=== PATIENT | female | born 1985 | race Caucasian/White ===

== ENCOUNTER 2016-10-14 22:45 | Emergency (ER) | payer SELFPAY ==
[~2016-10-14] VITALS: Ht 167.6 cm; Wt 68.2 kg
[2016-10-14 22:50] VITALS: Ht 167.6 cm; Wt 68.2 kg
--- NOTE | 2016-10-14 22:54 | ERA ---
ER Documentation Chief Complaint Date/Time DATE: 10/14/16 TIME: 22:53 Chief Complaint PT BIBA FROM HOME FOR ANXIETY AND SHAKING PER FAMILY, NO HX OF SEIZURE HPI The patient is a 31-year-old female, presenting to the ER because of acute anxiety. She drank a Patricia bull 7 PM. She is having a lot of stress, going through a divorce. She feels anxious, denies homicidal, suicidal ideation, auditory of visual hallucination. She denies facial pain, neck pain, chest pain , abdominal pain, vomiting, dysuria, diarrhea. She smokes socially, denies drinking or using illegal drug ROS All systems reviewed and are negative except as per history of present illness. Medications Home Meds Active Scripts Sulfamethoxazole-Trimethoprim* (Bactrim* DS) 800-160 Mg Tab, 1 TAB PO BID for 7 Days, TAB Prov:CHANCE ROSENBAUM MD 10/15/16 Physical Exam Vitals Vital Signs Date Time Temp Pulse Resp B/P Pulse Ox O2 Delivery O2 Flow Rate FiO2 10/15/16 01:17 64 20 116/71 100 Room Air 10/15/16 00:42 98.3 68 16 122/82 100 Room Air 10/14/16 23:03 83 19 131/91 100 Room Air 10/14/16 22:50 98.4 125 17 142/85 0 Physical Exam Const: No acute distress. Head: Atraumatic. Eyes: Normal Conjunctiva. ENT: Normal External Ears, Nose and Mouth. Neck: Full range of motion. No meningismus. Resp: Clear to auscultation bilaterally. Cardio: Regular rate and rhythm, no murmurs. Abd: Soft, non distended, normal bowel sounds, non tender. Skin: No petechiae or rashes. Back: No midline or flank tenderness. Ext: No cyanosis, or edema. Neur: Anxious Psych: Normal Mood and Affect. Result Diagram: 10/15/16 0030 10/15/16 0030 Results 24 hrs Laboratory Tests Test 10/14/16 23:45 10/15/16 00:02 10/15/16 00:30 Urine Amphetamines Screen Negative Urine Barbiturates Negative Urine Benzodiazepines Screen Negative Urine Cannabinoids Negative Urine Cocaine Screen Negative Urine Opiates Screen Negative Bedside Urine Blood Negative Bedside Urine Glucose (UA) Negative Bedside Urine Ketones (LAB) Negative Bedside Urine Leukocyte Esterase (L 2+ Bedside Urine Nitrite (LAB) Positive Bedside Urine Protein (LAB) Negative Bedside Urine pH (LAB) 5.5 Acetaminophen Level < 10.0ug/ml Alanine Aminotransferase (ALT/SGPT) 39IU/L Albumin 4.1g/dl Albumin/Globulin Ratio 1.24 Alkaline Phosphatase 94IU/L Anion Gap 15 Aspartate Amino Transf (AST/SGOT) 29IU/L Basophils # 0.110^3/ul Basophils % 0.6% Blood Urea Nitrogen 9mg/dl Calcium Level 8.8mg/dl Carbon Dioxide Level 23mmol/L Chloride Level 107mmol/L Creatinine 0.52mg/dl Direct Bilirubin 0.00mg/dl Eosinophils # 0.410^3/ul Eosinophils % 3.9% Ethyl Alcohol Level < 10.0mg/dl Globulin 3.30g/dl Glucose Level 92mg/dl Hematocrit 37.2% Hemoglobin 12.4g/dl Indirect Bilirubin 0.0mg/dl Lymphocytes # 1.710^3/ul Lymphocytes % 18.7% Mean Corpuscular Hemoglobin 28.9pg Mean Corpuscular Hemoglobin Concent 33.3g/dl Mean Corpuscular Volume 86.7fl Mean Platelet Volume 10.9fl Monocytes # 0.710^3/ul Monocytes % 7.7% Neutrophils # 6.210^3/ul Neutrophils % 68.9% Nucleated Red Blood Cells # 0.010^3/ul Nucleated Red Blood Cells % 0.0/100WBC Platelet Count 44373^3/UL Potassium Level 3.3mmol/L Red Blood Count 4.2910^6/ul Red Cell Distribution Width 13.2% Salicylates Level < 1.0mg/dl Sodium Level 142mmol/L Total Bilirubin 0.0mg/dl Total Protein 7.4g/dl White Blood Count 9.010^3/ul Current Medications Medications (Trade) Dose Ordered Sig/Judith Route PRN Reason Start Time Stop Time Status Last Admin Dose Admin Acetaminophen (Tylenol Tab) 650 mg ONCE ONCE PO 10/15/16 00:00 10/15/16 00:01 DC 10/14/16 23:50 Potassium Chloride (Klor-Con 20) 20 meq ONCE STAT PO 10/15/16 01:30 10/15/16 01:31 UNV Procedures/MDM MEDICAL MAKING DECISION: The patient is a 31-year-old female, presenting with acute anxiety, acute hypokalemia, acute cystitis. She was treated with Tylenol 650 mg p.o. for headache and potassium chloride 20 mEq p.o. The differential diagnoses considered include but are not limited to acute anxiety attack, acute panic attack, acute depression, acute stress Departure Diagnosis: Primary Impression: Anxiety Additional Impressions: UTI (urinary tract infection) Hypokalemia Condition: Good Comments She was discharged with Bactrim DS I discussed the findings with the patient. I advised the patient to follow-up with the primary physician in about 1-2 days, sooner if needed and return if any concern. The patient's blood pressure was elevated (>120/80) but appears stable without evidence of hypertension emergency or urgency. The patient was counseled about the risks of hypertension and urged to pursue outpatient monitoring and therapy within a week with their primary care physician. CHANCE ROSENBAUM MD Oct 14, 2016 22:53
[2016-10-15] MEDS ORDERED: ACETAMINOPHEN 325 MG TAB PO ONE
[2016-10-15 00:04] LABS: URINE BLOOD (Dip) POC Negative (NEGATIVE)
[2016-10-15 00:50] LABS: ADD SCAN DIFF NO
[2016-10-15 00:54] LABS: BASOPHIL # 0.1 10^3/ul (0.0-0.1); BASOPHILS % 0.6 % (0.0-2.0); EOSINOPHILS # 0.4 10^3/ul (0.0-0.5); EOSINOPHILS % 3.9 % (0.0-7.0); HEMATOCRIT 37.2 % (37.0-47.0); HEMOGLOBIN 12.4 g/dl (12.0-16.0); LYMPHOCYTES # 1.7 10^3/ul (0.8-2.9); LYMPHOCYTES % 18.7 % (15.0-51.0); MEAN CORPUSCULAR HEMOGLOBIN 28.9 pg (29.0-33.0); MEAN CORPUSCULAR HGB CONC 33.3 g/dl (32.0-37.0); MEAN CORPUSCULAR VOLUME 86.7 fl (82.0-101.0); MEAN PLATELET VOLUME 10.9 fl (7.4-10.4); MONOCYTE # 0.7 10^3/ul (0.3-0.9); MONOCYTES % 7.7 % (0.0-11.0); NEUTROPHIL # 6.2 10^3/ul (1.6-7.5); NEUTROPHILS % 68.9 % (39.0-77.0); PLATELET COUNT 317 10^3/UL (140-415); RED BLOOD COUNT 4.29 10^6/ul (4.20-5.40); RED CELL DISTRIBUTION WIDTH 13.2 % (11.5-14.5)
[2016-10-15 01:03] LABS: ALBUMIN 4.1 g/dl (3.3-4.9); CHLORIDE 107 mmol/L (97-110)
[2016-10-15 01:04] LABS: POTASSIUM 3.3 mmol/L (3.5-5.1); SODIUM 142 mmol/L (135-144)
[2016-10-15 01:06] LABS: ALBUMIN/GLOBULIN RATIO 1.24; ALKALINE PHOSPHATASE 94 IU/L (42-121); ANION GAP 15 (8-16); ASPARTATE AMINO TRANSFERASE 29 IU/L (15-46); BLOOD UREA NITROGEN 9 mg/dl (7-20); CARBON DIOXIDE 23 mmol/L (21-31); CREATININE 0.52 mg/dl (0.44-1.00); TOTAL PROTEIN 7.4 g/dl (6.1-8.1)
[2016-10-15 01:07] LABS: ALANINE AMINOTRANSFERASE 39 IU/L (13-69); CALCIUM 8.8 mg/dl (8.4-10.2); GLUCOSE 92 mg/dl (70-220)
[2016-10-15 01:26] LABS: ACETAMINOPHEN < 10.0 ug/ml (10.0-30.0); ETHANOL < 10.0 mg/dl; SALICYLATE < 1.0 mg/dl (5.0-30.0)
[2016-10-15 01:40] LABS: BARBITURATES Negative (NEGATIVE); BENZODIAZEPINES Negative (NEGATIVE); CANNABINOIDS Negative (NEGATIVE); COCAINE Negative (NEGATIVE); OPIATES Negative (NEGATIVE)
[2016-10-15] MEDS ORDERED: BACTDS PO (01:49)
[2016-10-15] MEDS ORDERED: POTASSIUM CHLORIDE (SR) 20 MEQ TAB PO ONE (01:59)
[2016-10-15 02:40] VITALS: BP 113/77; PULSE 72; RESP 15; TEMP 98.1
== END 2016-10-15 02:40 | disposition home or self-care (01) ==
LOC: E/R 22:45
DX: F41.9 Anxiety disorder, unspecified (principal); F17.210 Nicotine dependence, cigarettes, uncomplicated; R40.2142 Coma scale, eyes open, spontaneous, at arrival to emergency department; R40.2252 Coma scale, best verbal response, oriented, at arrival to emergency department; R40.2362 Coma scale, best motor response, obeys commands, at arrival to emergency department; N39.0 Urinary tract infection, site not specified; E87.6 Hypokalemia
CPT/HCPCS: 36415; 80053; 80306; 80307; 81003; 85025; 99283

== ENCOUNTER 2018-02-03 21:11 | Outpatient (CLI) | END 2018-02-04 01:55 | disposition home or self-care (01) ==

== ENCOUNTER 2018-02-06 20:35 | Outpatient (CLI) | END 2018-02-06 22:37 | disposition home or self-care (01) ==

== ENCOUNTER 2019-02-08 17:21 | Inpatient (IN) | payer MEDICAID ==
[~2019-02-08] VITALS: Ht 162.6 cm; Wt 87.0 kg
[~2019-02-08 17:21] MED LIST: PREN-6 PO
[2019-02-08 17:54] VITALS: BP 107/61; Ht 162.6 cm; Wt 87.0 kg
[2019-02-08] MEDS ORDERED: AL HYDROX/MG HYDROX/SIMETH 30 ML CUP PO PRN (23:00)
[2019-02-08] MEDS ORDERED: MAGNESIUM SULFATE 4 GM/100 ML 100 ML IV ONE (23:00)
[2019-02-08] MEDS ORDERED: ONDANSETRON 4 MG INJ IV PRN (23:00)
[2019-02-08] MEDS ORDERED: ACETAMINOPHEN 325 MG TAB PO PRN (23:00)
[2019-02-08] MEDS: LACTATED RINGER'S 1,000 ML IV SCH (23:26)
--- NOTE | 2019-02-08 23:27 | TRIAGE ---
OB Triage Datetime Report Generated by CPN: 02/08/2019 23:27 Datetime: 02/08/2019 22:22 Vaginal Exam Membrane Status: Intact Datetime: 02/08/2019 19:38 Pain Assessment Pain Scale: 2 Pain Presence: Intermittent Pain Type: Pressure Pain Location: Abdomen Pain Assessment Comments: Pt states feeling pressure when the baby moves. Datetime: 02/08/2019 18:51 Stage of : OB Triage Labor Evaluation Frequency: 0 Monitor Mode: External Pattern: Normal: <= 5 Contractions in 10 Minutes Resting Tone [place]: Relaxed Heart Rate FHR Baseline Rate: 135 Monitor Mode: External US Variability: Moderate 6-25 bpm Accelerations: 15X15 Decelerations: None Category: Category I Datetime: 02/08/2019 17:49 Time of Arrival: 02/08/2019 17:08 EGA: 30.3 Arrived By: Ambulatory Arrived From: Dr. Goodman Chief Complaint: SENT TO R/O PTL , C/O PRESSURE Movement: Present Contractions: Denies/Absent Rupture of Membranes: Denies Vaginal Bleeding: None Vaginal Discharge: Denies Recent Sexual Intercouse: Denies Abdominal Trauma: Not Applicable Patient Complaints: Other Time Provider Notified: 02/08/2019 17:52 Provider Notified: DR. HUNTER Initial Plan: EFM, CALL MD , FFN, CL, US CLARK Datetime: 02/08/2019 17:41 Stage of : OB Triage Labor Evaluation Frequency: 0 Monitor Mode: External Pattern: Normal: <= 5 Contractions in 10 Minutes Resting Tone [place]: Relaxed Heart Rate FHR Baseline Rate: 145 Monitor Mode: External US Variability: Moderate 6-25 bpm Accelerations: 15X15 Decelerations: None Category: Category I Pain Presence: None/Denies Pain Type: N/A
[2019-02-08] MEDS: AMPICILLIN 2 GM/NS (PMX) 100 ML IV SCH (23:28)
[2019-02-09] MEDS: MAGNESIUM SULFATE 20 GM/500 ML 500 ML IV SCH ×3 (00:10→19:31)
--- NOTE | 2019-02-09 00:13 | PN ---
Triage Information Date/Time Feb 08, 2019 at 22:15 Reason for visit: Abd/pelvic pain Weeks of Gestation 30 weeks and 3 days /Para -0-0-3 Diabetes: none Hypertention: none Objective Vital Signs Date Temp Pulse Resp B/P (MAP) Pulse Ox O2 O2 Flow FiO2 Time Delivery Rate 02/08/19 98.0 107/61 17:54 (76) Heart Rate: 130's Contractions: 6-10 Minutes Apart Results/Medications Result Diagram: 02/08/19 2300 Results 24 hrs Laboratory Tests Test 02/08/19 18:00 02/08/19 23:00 Urine Color YELLOW Urine Clarity SLIGHTLY CLOUDY A Urine pH 6.0 Urine Specific [place] 1.025 Urine Ketones NEGATIVE Urine Nitrite NEGATIVE Urine Bilirubin NEGATIVE Urine Urobilinogen NEGATIVE Urine Leukocyte Esterase TRACE A Urine Microscopic RBC 1 Urine Microscopic WBC 14 H Urine Calcium Oxalate Crystals MANY A Urine Bacteria MANY A Urine Mucus FEW A Urine Hemoglobin NEGATIVE Urine Glucose NEGATIVE Urine Total Protein NEGATIVE Fibronectin NEGATIVE White Blood Count 9.4 Red Blood Count 3.84 L Hemoglobin 10.9 L Hematocrit 32.2 L Mean Corpuscular Volume 83.9 Mean Corpuscular Hemoglobin 28.4 L Mean Corpuscular Hemoglobin Concent 33.9 Red Cell Distribution Width 13.2 Platelet Count 261 Mean Platelet Volume 11.2 H Immature Granulocytes % 0.400 Neutrophils % 66.8 Lymphocytes % 19.7 Monocytes % 9.3 Eosinophils % 3.5 Basophils % 0.3 Nucleated Red Blood Cells % 0.0 Immature Granulocytes # 0.040 H Neutrophils # 6.3 Lymphocytes # 1.9 Monocytes # 0.9 Eosinophils # 0.3 Basophils # 0.0 Nucleated Red Blood Cells # 0.0 Medications Current Medications Lactated Ringer's 1,000 ml @ 75 mls/hr [id number] IV Last administered on 02/08/19at 23:26; Admin Dose 75 MLS/HR; Start 02/08/19 at 22:42 Magnesium Sulfate 500 ml @ 50 mls/hr Q10H IV ; Start 02/08/19 at 23:30 Betamethasone Acet/Betameth SodPhos (Celestone Soluspan) 12 mg Q24H IM ; Start 02/08/19 at 23:00; Stop 02/09/19 at 23:01 Ampicillin 100 ml @ 100 mls/hr Q6H IV Last administered on 02/08/19at 23:28; Admin Dose 100 MLS/HR; Start 02/08/19 at 23:00 Prenat Multivit/ Data Assistant/Iron/Folic Ac () 1 tab DAILY PO ; Start 02/09/19 at 09:00 Docusate Sodium (Colace) 100 mg BID PO ; Start 02/09/19 at 09:00 Acetaminophen (Tylenol Tab) 650 mg Q4H PRN PO .PAIN OR TEMP; Start 02/08/19 at 23:00 Al Hydrox/Mg Hydrox/Simethicone (Mag-Al Plus) 30 ml Q6H PRN PO .GI UPSET; Start 02/08/19 at 23:00 Ondansetron HCl (Zofran Inj) 4 mg Q6H PRN IV NAUSEA/VOMITING; Start 02/08/19 at 23:00 Disposition: Admit Assessment/Plan 34 years old -0-0-3 with single intrauterine at 30 weeks and 3 days with a NAN of 04/16/2019 complaining of abdominal and pelvic pressure. She states good movement. She denies nausea, vomiting, shortness of breath, chest pain, headache, visual changes, vaginal bleeding or LOF. -FHR: No sign of metabolic acidosis- Category I - fibronectin is negative -Ultrasound performed, result is pending. Follow-up with upcoming laborist Dr. Contreras -Symptoms and sign of labor, preeclampsia, kick count discussed with patient, she voiced understanding. All of her questions answered. ASAEL HUNTER Feb 09, 2019 00:13
[2019-02-09] MEDS: BETAMET NA PHOS/AC(6 MG/ML) 2 ML INJ SYG IM SCH (00:59)
[2019-02-09] MEDS: AMPICILLIN 2 GM/NS (PMX) 100 ML IV SCH ×4 (04:59→23:05)
[2019-02-09] MEDS: LACTATED RINGER'S 1,000 ML IV SCH (09:11)
[2019-02-09] MEDS: PRENATAL VITAMIN PO SCH (09:11)
[2019-02-09] MEDS: DOCUSATE SODIUM 100 MG CAP PO SCH ×2 (09:11→21:36)
--- NOTE | 2019-02-09 13:20 | HP ---
Date/Time of Note Date/Time of Note DATE: 02/09/19 TIME: 13:19 OB - History Hx of Present : 4 Para: 3 Care: Good Care Ultrasounds: Normal mid trimester US Obstetrical Complications: None Medical Complications: None Past Family/Social History * Past Medical, Surgical, Family and Obstetric Histories reviewed from chart. OB Admission Exam Vital Signs Vital Signs Vital Signs Date Temp Pulse Resp B/P (MAP) Pulse Ox O2 O2 Flow FiO2 Time Delivery Rate 02/08/19 98.0 107/61 17:54 (76) Physical Exam HEENT: WNL Heart: Rhythm Normal Lungs: Clear, Equal Abdomen: WNL Extremities: Normal Reflexes: Normal Cervical Dilatation: Fingertip Effacement: 75% Station: -1 Membranes: Intact Heart Rate: 130's Accelerations: Accelerations Present Decelerations: No Decelerations Contractions on Admission: 6-10 Minutes Apart Intensity: Moderate Last 72 hours Lab Results CBC & BMP 02/08/19 23:00 Magnesium Level Test 02/09/19 03:56 02/09/19 10:53 Magnesium Level 4.1 H 4.6 H OB Assessment/Plan Reason for admission: active labor Plan: Expectant Management (MAGNESIUM, AMPICILLIN, BETA METHSAONE.) KEV BLANCO MD Feb 09, 2019 13:20
--- NOTE | 2019-02-09 13:58 | QN ---
Documentation Comment Neonatology consult Consult the request of Dr. Davis This mother is a 34-year-old 4 para3 3 living children. She presented on 02/08 to [facility] 30.4 weeks of gestation with labor with intact membranes and possible anomalies. Mother is presently receiving magnesium sulfate and given the first dose of betamethasone 0059. I spoke to the mother regarding the risks associated with delivery at 30.4 weeks gestation occluding but not limited to the following 1. Respiratory the infant has a mild risk for respiratory distress syndrome wi ll probably require heart short term ventilatory support and oxygen. The steroid should help mature the lungs to decrease the amount of ventilation the baby may require. I discussed the use of surfactant on the small risk of chronic lung disease with these infants. This is also risk for apnea prematurity and will start treatment with caffeine initially probably use nasal cannula oxygen support as necessary. 2. Cardiac: The infant is at risk for hypertension may require volume support or medications to facilitate better blood pressures. is at risk for patent ductus arteriosus probably 20 to 30% which may require some treatment use with medications or rarely with surgery. 3. Infectious disease: Her mother has intact membranes unknown GBS. If there is rupture of membranes or prolonged rupture membranes and will increase the risk for infection. If will be worked up on admission and considered for antibiotics at least a short course based on the antepartum course. 4. Anemia: is also risk for anemia and thrombocytopenia may require transfusions radiation medications for treatment of anemia. 5. Jaundice: Infant is at risk for jaundice and may require phototherapy as part of the treatment pattern this will resolve the first 1 to 2 weeks. 6. Anomalies. There is no definition of the anomalies in the paperwork that I have available to me. 7. Interventricular hemorrhage: Discussed the grading system for intraventricular hemorrhages 0-4 with a significant long-term neurodevelopmental risk for grade 3 and 4. Risk at 30.4 weeks is probably less than 10% for grade 3 or 4 decreasing is the infant's gestation improves. 8. Nutrition: The infant will initially be on parenteral nutrition support to be started on feedings once clinically stable probably by gavage. The 's will be able to start nipple feeding somewhere between 33 and 34 weeks he is in completing all the feedings around 38+ weeks of gestation. He asked. Anticipated length of stay is ~due date 2 weeks. thank you for this consult and will be available for further consultation or attendance of delivery as necessary. Length of consult was greater than 45 minutes with greater than 50% of the consult [id number] discussion with the mother. CRISTINA SULLIVAN MD Feb 09, 2019 13:57
[2019-02-10] MEDS: BETAMET NA PHOS/AC(6 MG/ML) 2 ML INJ SYG IM SCH (01:18)
[2019-02-10] MEDS: LACTATED RINGER'S 1,000 ML IV SCH ×2 (01:22→15:54)
--- NOTE | 2019-02-10 02:19 | CONS ---
DATE OF ADMISSION: 02/08/2019 DATE OF CONSULTATION: 02/09/2019 HISTORY OF PRESENT ILLNESS: The patient is currently at 30 weeks 4 days. Transvaginal cervical vashti th 2.5 cm, magnesium has been started. RECOMMENDATIONS: Continue with the magnesium sulfate 24 hours after the second dose of betamethasone . After magnesium is discontinued after a few hours, if the cervical length is unchanged and the pat ient is comfortable, discharge home with labor precautions. Dictated By: LOTTIE JONES MD ST/NTS Conf#: [id number] DID#: [id number] CC: KEV BLANCO MD;*EndCC*
[2019-02-10] MEDS: DOCUSATE SODIUM 100 MG CAP PO SCH ×2 (09:00→21:00)
[2019-02-10] MEDS: AMPICILLIN 2 GM/NS (PMX) 100 ML IV SCH ×4 (11:00→23:06)
[2019-02-10] MEDS: PRENATAL VITAMIN PO SCH (15:54)
[2019-02-10] MEDS: MAGNESIUM SULFATE 20 GM/500 ML 500 ML IV SCH (15:58)
[2019-02-10] MEDS ORDERED: MISOPROSTOL 50 MCG CAPSULE PO SCH (19:00)
[2019-02-11] MEDS: AMPICILLIN 2 GM/NS (PMX) 100 ML IV SCH (04:53)
--- NOTE | 2019-02-11 08:17 | QN ---
Documentation Comment DOING WELL VSS ABD SOFT NO CTX AWAITING CERVICAL LENGTH TODAY. WILL D/C HOME IF SAME CERVICAL LENGTH KEV BLANCO MD Feb 11, 2019 08:17
--- NOTE | 2019-02-11 08:18 | DS ---
Date/Time of Note Date/Time of Note DATE: 02/11/19 TIME: 08:17 Discharge Summary Admission/Discharge Info Admit Date/Time Feb 08, 2019 at 22:15 Discharge Date/Time Discharge Diagnosis LABOR Patient Condition: Stable Hospital Course BETA METHASONE, ANTIBIOTICS, MAGNESIUM Home Meds Reported Medications Vits #93-Iron Fum-FA ( Formula) 1 Each Tablet, 1 TAB PO DAILY, TAB 02/03/18 Primary Care Provider Care Physician No Primary Pending Labs Laboratory Tests Test 02/10/19 10:26 02/10/19 16:03 02/10/19 22:10 Magnesium Level 4.8 mg/dl (1.7-2.5) 4.8 mg/dl (1.7-2.5) 4.7 mg/dl (1.7-2.5) KEV BLANCO MD Feb 11, 2019 08:18
[2019-02-11] MEDS: DOCUSATE SODIUM 100 MG CAP PO SCH (09:16)
[2019-02-11] MEDS: PRENATAL VITAMIN PO SCH (09:16)
[2019-02-11] MEDS: LACTATED RINGER'S 1,000 ML IV SCH (10:13)
== END 2019-02-11 11:03 | disposition home or self-care (01) | DRG 833 ==
LOC: OBT 17:21 → L-D 17:23 → OBT 22:15
PROVIDERS: ADMIT Obstetrics & Gynecology; ATTEND Obstetrics & Gynecology
DX: O60.03 Preterm labor without delivery, third trimester (principal); Z3A.30 30 weeks gestation of pregnancy
CPT/HCPCS: 76815; 76817; 81001; 82731; 83735; 85025; 87086; G0463; J0290; J0702; J3475; J7120

== ENCOUNTER 2019-03-06 19:34 | Outpatient (CLI) | payer MEDICAID ==
[~2019-03-06] VITALS: Ht 162.6 cm; Wt 88.1 kg
[2019-03-06 20:08] VITALS: BP 105/54; PULSE 69; RESP 15
--- NOTE | 2019-03-06 21:22 | PN ---
Triage Information Date/Time March 06, 2019 Reason for visit: Uterine contractions Weeks of Gestation 34w 1d /Para 4/3 Diabetes: none Hypertention: none Additional information Pt reports UC's since the morning q 10 min, and was sent in by her clinic for evaluation Her cervical exam, per the pt, was 1 cm. Pt was here at [facility] mid January for PTL and received steroids. Her cervical exam then had been thick but with some funneling. PMHx: none. PSHx: none. POBHx: x 3, ages 1, 13, 16. NKDA Objective Vital Signs Date Temp Pulse Resp B/P (MAP) Pulse Ox O2 O2 Flow FiO2 Time Delivery Rate 03/06/19 98.1 69 15 105/54 Room Air 20:08 (71) Heart Rate: 120's Heart Rate Comments Accels to 170 BPM. No decels. Contractions: >10 Minutes Apart (rare) Results/Medications Results 24 hrs Laboratory Tests Test 03/06/19 19:40 Urine Color YELLOW Urine Clarity SLIGHTLY CLOUDY A Urine pH 6.0 Urine Specific [place] 1.028 Urine Ketones NEGATIVE Urine Nitrite NEGATIVE Urine Bilirubin NEGATIVE Urine Urobilinogen NEGATIVE Urine Leukocyte Esterase 2+ H Urine Microscopic RBC 2 Urine Microscopic WBC 50 H Urine Calcium Oxalate Crystals MODERATE Urine Bacteria FEW A Urine Mucus FEW A Urine Hemoglobin 1+ H Urine Glucose NEGATIVE Urine Total Protein NEGATIVE Disposition: Discharge Assessment/Plan A: IUP at 34w 1d. False labor. P: D/C home as rare UC's. The nurse spoke with Dr Duncan and he recommended d/c. Reviewed PTL precautions. To keep her f/u at the clinic with her doctor in 2 weeks. GEETHA ASHER MD Mar 06, 2019 21:22
--- NOTE | 2019-03-07 00:01 | TRIAGE ---
OB Triage Datetime Report Generated by CPN: 03/07/2019 00:01 Datetime: 03/06/2019 19:40 Time of Arrival: 03/06/2019 19:26 EGA: 34.1 Arrived By: Wheelchair Arrived From: Home Chief Complaint: w/ hx PTL sent from clinic w/ c/o irreg ucs and states was 1cm at clinic Movement: Present Contractions: Irregular Time Contractions Began: 03/06/2019 03:00 Rupture of Membranes: Denies Vaginal Bleeding: None Vaginal Discharge: Denies Recent Sexual Intercouse: Denies Abdominal Trauma: Not Applicable Patient Complaints: Contractions Time Provider Notified: 03/06/2019 20:10 Provider Notified: Dr Duncan Initial Plan: EFM,UA Datetime: 02/11/2019 10:47 Comments: fht's 125-140's with mod nabil, no ctx's noted per toco Comments: efm and toco removed Datetime: 02/11/2019 10:30 Stage of : Antepartum Labor Evaluation Frequency: 0 Monitor Mode: External Resting Tone [place]: Relaxed Heart Rate FHR Baseline Rate: 130 Monitor Mode: External US FHR Baseline Changes: No Baseline Change Variability: Moderate 6-25 bpm Accelerations: 15X15 Decelerations: None Category: Category I Pain Assessment Pain Scale: 0 Pain Presence: None/Denies Pain Type: N/A Datetime: 02/11/2019 09:30 Stage of : Antepartum Labor Evaluation Frequency: 0 Monitor Mode: External Resting Tone [place]: Relaxed Heart Rate FHR Baseline Rate: 130 Monitor Mode: External US FHR Baseline Changes: No Baseline Change Variability: Moderate 6-25 bpm Accelerations: 15X15 Decelerations: None Category: Category I Pain Assessment Pain Scale: 0 Pain Presence: None/Denies Pain Type: N/A Datetime: 02/11/2019 08:30 Stage of : Antepartum Labor Evaluation Frequency: 0 Monitor Mode: External Resting Tone [place]: Relaxed Heart Rate FHR Baseline Rate: 130 Monitor Mode: External US FHR Baseline Changes: No Baseline Change Variability: Moderate 6-25 bpm Accelerations: 15X15 Decelerations: None Category: Category I Pain Assessment Pain Scale: 0 Pain Presence: None/Denies Pain Type: N/A Datetime: 02/11/2019 07:30 Stage of : Antepartum Labor Evaluation Frequency: 0 Monitor Mode: External Resting Tone [place]: Relaxed Heart Rate FHR Baseline Rate: 130 Monitor Mode: External US FHR Baseline Changes: No Baseline Change Variability: Moderate 6-25 bpm Accelerations: 15X15 Decelerations: None Category: Category I Pain Assessment Pain Scale: 0 Pain Presence: None/Denies Pain Type: N/A Datetime: 02/11/2019 07:14 Stage of : Antepartum Assessment Type: Ongoing Assessment Maternal Assessment Level of Consciousness: Keenly Alert, Responsive DTR's/Clonus: DTRs 2+; No Clonus Headache: Denies Blurred Vision: No Respiratory Effort: Unlabored; Regular Rhythm; Equal Expansion Breath Sounds, Left: Clear and Equal Breath Sounds, Right: Clear and Equal Nausea/Vomiting: Denies RUQ Epigastric Pain: Denies Lower Extremities Edema: None Upper Extremities Edema: None Facial Edema: None Temperature Route: Oral Fall Risk Assessment History of Falling: (0) No Secondary Diagnosis: (0) No Ambulatory Aid: (0) Bedrest/Nurse Assist IV Therapy: (20) Yes Gait: (0) Normal/Bedrest/Immobile Mental Status: (0) Oriented to Own Ability Fall Score: 20 Fall Risk Score Definition: No Risk: No action required Datetime: 02/11/2019 06:30 Labor Evaluation Frequency: 0 Heart Rate FHR Baseline Rate: 135 Monitor Mode: External US FHR Baseline Changes: No Baseline Change Variability: Moderate 6-25 bpm Accelerations: 15X15 Category: Category I Datetime: 02/11/2019 05:30 Labor Evaluation Frequency: 0 Monitor Mode: External Heart Rate FHR Baseline Rate: 130 Monitor Mode: External US FHR Baseline Changes: No Baseline Change Variability: Moderate 6-25 bpm Accelerations: 15X15 Decelerations: None Category: Category I Datetime: 02/11/2019 04:30 Labor Evaluation Frequency: X1 Monitor Mode: External Heart Rate FHR Baseline Rate: 130 Monitor Mode: External US FHR Baseline Changes: No Baseline Change Variability: Moderate 6-25 bpm Accelerations: 15X15 Decelerations: None Category: Category I Datetime: 02/11/2019 04:10 Pain Assessment Pain Scale: 0 Datetime: 02/11/2019 03:30 Labor Evaluation Frequency: 0 Monitor Mode: External Heart Rate FHR Baseline Rate: 125 Monitor Mode: External US FHR Baseline Changes: No Baseline Change Variability: Moderate 6-25 bpm Accelerations: 15X15 Decelerations: None Category: Category I Datetime: 02/11/2019 02:30 Labor Evaluation Frequency: 0 Monitor Mode: External Heart Rate FHR Baseline Rate: 125 Monitor Mode: External US FHR Baseline Changes: No Baseline Change Variability: Moderate 6-25 bpm Accelerations: 15X15 Decelerations: Variable Category: Category II Datetime: 02/11/2019 01:30 Labor Evaluation Frequency: 0 Monitor Mode: External Heart Rate FHR Baseline Rate: 125 Monitor Mode: External US FHR Baseline Changes: No Baseline Change Variability: Moderate 6-25 bpm Accelerations: 15X15 Decelerations: None Category: Category I Datetime: 02/11/2019 00:30 Labor Evaluation Frequency: 0 Monitor Mode: External Heart Rate FHR Baseline Rate: 130 Monitor Mode: External US FHR Baseline Changes: No Baseline Change Variability: Moderate 6-25 bpm Accelerations: 15X15 Decelerations: None Category: Category I Datetime: 02/10/2019 23:30 Labor Evaluation Frequency: 0 Monitor Mode: External Heart Rate FHR Baseline Rate: 130 Monitor Mode: External US FHR Baseline Changes: No Baseline Change Variability: Moderate 6-25 bpm Accelerations: 15X15 Decelerations: None Category: Category I Datetime: 02/10/2019 23:06 Pain Assessment Pain Scale: 0 Datetime: 02/10/2019 22:30 Labor Evaluation Frequency: 0 Monitor Mode: External Heart Rate FHR Baseline Rate: 125 Monitor Mode: External US FHR Baseline Changes: No Baseline Change Variability: Moderate 6-25 bpm Accelerations: 15X15 Decelerations: None Category: Category I Datetime: 02/10/2019 21:50 Stage of : Antepartum Datetime: 02/10/2019 21:34 Assessment Type: Ongoing Assessment Maternal Assessment Level of Consciousness: Keenly Alert, Responsive DTR's/Clonus: DTRs 2+; No Clonus Headache: Denies Blurred Vision: No Respiratory Effort: Unlabored; Regular Rhythm; Equal Expansion Breath Sounds, Left: Clear and Equal Breath Sounds, Right: Clear and Equal Nausea/Vomiting: Denies RUQ Epigastric Pain: Denies Lower Extremities Edema: Bilateral Lower Extremities (Annotations: TRACE) Degree: TRACE Upper Extremities Edema: Bilateral Upper Extremities (Annotations: TRACE) Degree: TRACE Facial Edema: None Fall Risk Assessment History of Falling: (0) No Secondary Diagnosis: (0) No Ambulatory Aid: (0) Bedrest/Nurse Assist IV Therapy: (20) Yes Gait: (0) Normal/Bedrest/Immobile Mental Status: (0) Oriented to Own Ability Fall Score: 20 Fall Risk Score Definition: No Risk: No action required Datetime: 02/10/2019 21:30 Labor Evaluation Frequency: 0 Monitor Mode: External Heart Rate FHR Baseline Rate: 125 Monitor Mode: External US FHR Baseline Changes: No Baseline Change Variability: Moderate 6-25 bpm Accelerations: 15X15 Decelerations: None Category: Category I Pain Assessment Pain Scale: 0 Datetime: 02/10/2019 19:30 Labor Evaluation Frequency: 0 Monitor Mode: External Heart Rate FHR Baseline Rate: 125 Monitor Mode: External US FHR Baseline Changes: No Baseline Change Variability: Moderate 6-25 bpm Accelerations: 15X15 Decelerations: None Category: Category I Datetime: 02/10/2019 18:21 DTR's/Clonus: DTRs 2+; No Clonus Headache: Denies Blurred Vision: No Nausea/Vomiting: Denies RUQ Epigastric Pain: Denies Facial Edema: None Labor Evaluation Frequency: 0 Monitor Mode: External Heart Rate FHR Baseline Rate: 125 Monitor Mode: External US FHR Baseline Changes: No Baseline Change Variability: Moderate 6-25 bpm Accelerations: 15X15 Decelerations: None Category: Category I Pain Presence: None/Denies Datetime: 02/10/2019 17:04 Labor Evaluation Frequency: 0 Monitor Mode: External Heart Rate FHR Baseline Rate: 120 Monitor Mode: External US FHR Baseline Changes: No Baseline Change Variability: Moderate 6-25 bpm Accelerations: 15X15 Decelerations: None Category: Category I Pain Presence: None/Denies Datetime: 02/10/2019 16:13 Labor Evaluation Frequency: 0 Monitor Mode: External Heart Rate FHR Baseline Rate: 115 Monitor Mode: External US FHR Baseline Changes: No Baseline Change Variability: Moderate 6-25 bpm Accelerations: 15X15 Decelerations: None Category: Category I Pain Presence: None/Denies Datetime: 02/10/2019 15:05 DTR's/Clonus: DTRs 2+; No Clonus Headache: Denies Blurred Vision: No Nausea/Vomiting: Denies RUQ Epigastric Pain: Denies Facial Edema: None Labor Evaluation Frequency: 0 Monitor Mode: External Heart Rate FHR Baseline Rate: 120 Monitor Mode: External US FHR Baseline Changes: No Baseline Change Variability: Moderate 6-25 bpm Accelerations: 15X15 Decelerations: None Category: Category I Pain Presence: None/Denies Datetime: 02/10/2019 14:13 Monitor Mode: External Heart Rate FHR Baseline Rate: 120 Monitor Mode: External US FHR Baseline Changes: No Baseline Change Variability: Moderate 6-25 bpm Accelerations: 15X15 Decelerations: None Category: Category I Pain Presence: None/Denies Datetime: 02/10/2019 13:18 DTR's/Clonus: DTRs 2+; No Clonus Headache: Denies Blurred Vision: No Nausea/Vomiting: Denies RUQ Epigastric Pain: Denies Facial Edema: None Labor Evaluation Frequency: 0 Monitor Mode: External Heart Rate FHR Baseline Rate: 120 Monitor Mode: External US FHR Baseline Changes: No Baseline Change Variability: Moderate 6-25 bpm Accelerations: 15X15 Decelerations: None Category: Category I Pain Presence: None/Denies Datetime: 02/10/2019 11:17 DTR's/Clonus: DTRs 2+; No Clonus Headache: Denies Blurred Vision: No Nausea/Vomiting: Denies RUQ Epigastric Pain: Denies Facial Edema: None Labor Evaluation Frequency: 0 Monitor Mode: External Heart Rate FHR Baseline Rate: 115 Monitor Mode: External US FHR Baseline Changes: No Baseline Change Variability: Moderate 6-25 bpm Accelerations: 15X15 Decelerations: None Category: Category I Pain Presence: None/Denies Datetime: 02/10/2019 10:07 Labor Evaluation Frequency: 0 Monitor Mode: External Heart Rate FHR Baseline Rate: 115 Monitor Mode: External US FHR Baseline Changes: No Baseline Change Variability: Moderate 6-25 bpm Accelerations: 15X15 Decelerations: None Category: Category I Pain Presence: None/Denies Datetime: 02/10/2019 09:17 Labor Evaluation Frequency: 0 Monitor Mode: External Heart Rate FHR Baseline Rate: 115 Monitor Mode: External US FHR Baseline Changes: No Baseline Change Variability: Moderate 6-25 bpm Accelerations: 15X15 Decelerations: None Category: Category I Pain Presence: None/Denies Datetime: 02/10/2019 08:13 DTR's/Clonus: DTRs 2+; No Clonus Headache: Denies Blurred Vision: No Nausea/Vomiting: Denies RUQ Epigastric Pain: Denies Facial Edema: None Labor Evaluation Frequency: 0 Monitor Mode: External Heart Rate FHR Baseline Rate: 120 Monitor Mode: External US FHR Baseline Changes: No Baseline Change Variability: Moderate 6-25 bpm Accelerations: 15X15 Decelerations: None Category: Category I Pain Presence: None/Denies Datetime: 02/10/2019 07:00 Labor Evaluation Frequency: none Monitor Mode: External Resting Tone [place]: Relaxed Heart Rate FHR Baseline Rate: 118 Monitor Mode: External US FHR Baseline Changes: No Baseline Change Variability: Moderate 6-25 bpm Accelerations: 15X15 Decelerations: None Category: Category I Datetime: 02/10/2019 06:00 Labor Evaluation Frequency: none Monitor Mode: External Resting Tone [place]: Relaxed Heart Rate FHR Baseline Rate: 118 Monitor Mode: External US FHR Baseline Changes: No Baseline Change Variability: Moderate 6-25 bpm Accelerations: 15X15 Decelerations: None Category: Category I Datetime: 02/10/2019 05:14 Stage of : Antepartum Temperature Route: Oral Pain Assessment Pain Scale: 0 Pain Presence: None/Denies Pain Type: N/A Datetime: 02/10/2019 05:00 Labor Evaluation Frequency: none Monitor Mode: External Resting Tone [place]: Relaxed Heart Rate FHR Baseline Rate: 120 Monitor Mode: External US FHR Baseline Changes: No Baseline Change Variability: Moderate 6-25 bpm Accelerations: 15X15 Decelerations: None Category: Category I Datetime: 02/10/2019 04:00 Labor Evaluation Frequency: none Monitor Mode: External Resting Tone [place]: Relaxed Heart Rate FHR Baseline Rate: 120 Monitor Mode: External US FHR Baseline Changes: No Baseline Change Variability: Moderate 6-25 bpm Accelerations: 15X15 Decelerations: None Category: Category I Datetime: 02/10/2019 03:00 Labor Evaluation Frequency: none Monitor Mode: External Resting Tone [place]: Relaxed Heart Rate FHR Baseline Rate: 120 Monitor Mode: External US FHR Baseline Changes: No Baseline Change Variability: Moderate 6-25 bpm Accelerations: 15X15 Decelerations: None Category: Category I Datetime: 02/10/2019 02:00 Labor Evaluation Frequency: none Monitor Mode: External Resting Tone [place]: Relaxed Heart Rate FHR Baseline Rate: 120 Monitor Mode: External US FHR Baseline Changes: No Baseline Change Variability: Moderate 6-25 bpm Accelerations: 15X15 Decelerations: None Category: Category I Datetime: 02/10/2019 01:00 Labor Evaluation Frequency: none Monitor Mode: External Resting Tone [place]: Relaxed Heart Rate FHR Baseline Rate: 120 Monitor Mode: External US FHR Baseline Changes: No Baseline Change Variability: Moderate 6-25 bpm Accelerations: 15X15 Decelerations: None Category: Category I Datetime: 02/10/2019 00:00 Labor Evaluation Frequency: none Monitor Mode: External Resting Tone [place]: Relaxed Heart Rate FHR Baseline Rate: 120 Monitor Mode: External US FHR Baseline Changes: No Baseline Change Variability: Moderate 6-25 bpm Accelerations: 15X15 Decelerations: None Category: Category I Datetime: 02/09/2019 23:00 Labor Evaluation Frequency: none Monitor Mode: External Resting Tone [place]: Relaxed Heart Rate FHR Baseline Rate: 120 Monitor Mode: External US FHR Baseline Changes: No Baseline Change Variability: Moderate 6-25 bpm Accelerations: 15X15 Decelerations: Variable Datetime: 02/09/2019 22:00 Labor Evaluation Frequency: none Monitor Mode: External Resting Tone [place]: Relaxed Heart Rate FHR Baseline Rate: 120 Monitor Mode: External US FHR Baseline Changes: No Baseline Change Variability: Moderate 6-25 bpm Accelerations: 15X15 Decelerations: None Category: Category I Datetime: 02/09/2019 21:00 Labor Evaluation Frequency: none Monitor Mode: External Resting Tone [place]: Relaxed Heart Rate FHR Baseline Rate: 120 Monitor Mode: External US FHR Baseline Changes: No Baseline Change Variability: Moderate 6-25 bpm Accelerations: 15X15 Decelerations: None Category: Category I Datetime: 02/09/2019 20:00 Labor Evaluation Frequency: none Monitor Mode: External Resting Tone [place]: Relaxed Heart Rate FHR Baseline Rate: 120 Monitor Mode: External US FHR Baseline Changes: No Baseline Change Variability: Moderate 6-25 bpm Accelerations: 15X15 Decelerations: None Category: Category I Datetime: 02/09/2019 19:58 Stage of : Antepartum Temperature Route: Oral Pain Assessment Pain Scale: 5 Pain Presence: None/Denies Pain Type: Ache Pain Location: Back Pain Relief Measures: Comfort Measures Datetime: 02/09/2019 19:40 Assessment Type: Ongoing Assessment Maternal Assessment Level of Consciousness: Keenly Alert, Responsive DTR's/Clonus: DTRs 2+; No Clonus Headache: Denies Blurred Vision: No Respiratory Effort: Unlabored; Regular Rhythm; Equal Expansion Breath Sounds, Left: Clear and Equal Breath Sounds, Right: Clear and Equal Nausea/Vomiting: Denies RUQ Epigastric Pain: Denies Lower Extremities Edema: None Degree: None Upper Extremities Edema: None Degree: None Facial Edema: None Fall Risk Assessment History of Falling: (0) No Secondary Diagnosis: (0) No Ambulatory Aid: (0) Bedrest/Nurse Assist IV Therapy: (20) Yes Gait: (0) Normal/Bedrest/Immobile Mental Status: (0) Oriented to Own Ability Fall Score: 20 Fall Risk Score Definition: No Risk: No action required Datetime: 02/09/2019 19:00 Assessment Type: Ongoing Assessment Maternal Assessment Level of Consciousness: Keenly Alert, Responsive DTR's/Clonus: DTRs 2+; No Clonus Headache: Denies Blurred Vision: No Respiratory Effort: Unlabored Breath Sounds, Left: Clear and Equal Breath Sounds, Right: Clear and Equal Labor Evaluation Frequency: none Monitor Mode: External Resting Tone [place]: Relaxed Heart Rate FHR Baseline Rate: 120 Monitor Mode: External US FHR Baseline Changes: No Baseline Change Variability: Moderate 6-25 bpm Accelerations: 15X15 Decelerations: None Category: Category I Datetime: 02/09/2019 18:01 Labor Evaluation Frequency: x1 Monitor Mode: External Duration (sec)2399: 50 Quality: Mild Resting Tone [place]: Relaxed Heart Rate FHR Baseline Rate: 110 Monitor Mode: External US FHR Baseline Changes: No Baseline Change Variability: Moderate 6-25 bpm Accelerations: 15X15 Decelerations: None Category: Category I Datetime: 02/09/2019 17:25 Stage of : Antepartum Pain Assessment Pain Scale: 5 Pain Presence: Constant Pain Type: Pressure; Ache Pain Location: Back (Annotations: lower abdomen) Pain Relief Measures: Comfort Measures Datetime: 02/09/2019 17:00 Assessment Type: Ongoing Assessment Maternal Assessment Level of Consciousness: Keenly Alert, Responsive DTR's/Clonus: DTRs 2+; No Clonus Headache: Denies Blurred Vision: No Labor Evaluation Frequency: x1 Monitor Mode: External Duration (sec)2399: 40 Quality: Mild Resting Tone [place]: Relaxed Heart Rate FHR Baseline Rate: 110 Monitor Mode: External US FHR Baseline Changes: No Baseline Change Variability: Moderate 6-25 bpm Accelerations: 15X15 Decelerations: Variable Category: Category II Datetime: 02/09/2019 16:00 Labor Evaluation Frequency: none Monitor Mode: External Resting Tone [place]: Relaxed Heart Rate FHR Baseline Rate: 115 Monitor Mode: External US FHR Baseline Changes: No Baseline Change Variability: Moderate 6-25 bpm Accelerations: 15X15 Decelerations: None Category: Category I Datetime: 02/09/2019 15:00 Assessment Type: Ongoing Assessment Maternal Assessment Level of Consciousness: Keenly Alert, Responsive DTR's/Clonus: DTRs 2+; No Clonus Headache: Denies Blurred Vision: No Respiratory Effort: Unlabored Breath Sounds, Left: Clear and Equal Breath Sounds, Right: Clear and Equal Labor Evaluation Frequency: none Monitor Mode: External Resting Tone [place]: Relaxed Heart Rate FHR Baseline Rate: 120 Monitor Mode: External US FHR Baseline Changes: No Baseline Change Variability: Moderate 6-25 bpm Accelerations: 15X15 Decelerations: Variable Category: Category II Datetime: 02/09/2019 13:59 Labor Evaluation Frequency: none Monitor Mode: External Resting Tone [place]: Relaxed Heart Rate FHR Baseline Rate: 115 Monitor Mode: External US FHR Baseline Changes: No Baseline Change Variability: Moderate 6-25 bpm Accelerations: 15X15 Decelerations: None Category: Category I Datetime: 02/09/2019 13:11 Vaginal Exam Dilatation (cms): 0.0 Effacement (%): 70 Exam By: Dr Dakota Datetime: 02/09/2019 13:00 Assessment Type: Ongoing Assessment Maternal Assessment Level of Consciousness: Keenly Alert, Responsive DTR's/Clonus: DTRs 2+; No Clonus Headache: Denies Blurred Vision: No Labor Evaluation Frequency: none Monitor Mode: External Resting Tone [place]: Relaxed Heart Rate FHR Baseline Rate: 125 Monitor Mode: External US FHR Baseline Changes: No Baseline Change Variability: Moderate 6-25 bpm Accelerations: 15X15 Decelerations: None Category: Category I Datetime: 02/09/2019 11:56 Labor Evaluation Frequency: none Monitor Mode: External Resting Tone [place]: Relaxed Heart Rate FHR Baseline Rate: 125 Monitor Mode: External US FHR Baseline Changes: No Baseline Change Variability: Moderate 6-25 bpm Accelerations: 15X15 Decelerations: None Category: Category I Datetime: 02/09/2019 11:34 Stage of : Antepartum Pain Assessment Pain Scale: 5 Pain Presence: Constant Pain Type: Pressure; Ache Pain Location: Abdomen; Back (Annotations: lower abdomen) Datetime: 02/09/2019 11:00 Assessment Type: Ongoing Assessment Maternal Assessment Level of Consciousness: Keenly Alert, Responsive DTR's/Clonus: DTRs 2+; No Clonus Headache: Denies Blurred Vision: No Respiratory Effort: Unlabored Breath Sounds, Left: Clear and Equal Breath Sounds, Right: Clear and Equal Labor Evaluation Frequency: none Monitor Mode: External Resting Tone [place]: Relaxed Heart Rate FHR Baseline Rate: 115 Monitor Mode: External US FHR Baseline Changes: No Baseline Change Variability: Moderate 6-25 bpm Accelerations: 15X15 Decelerations: None Category: Category I Datetime: 02/09/2019 10:00 Labor Evaluation Frequency: x1 Monitor Mode: External Duration (sec)2399: 60 Quality: Mild Resting Tone [place]: Relaxed Heart Rate FHR Baseline Rate: 115 Monitor Mode: External US FHR Baseline Changes: No Baseline Change Variability: Moderate 6-25 bpm Accelerations: 15X15 Decelerations: None Category: Category I Datetime: 02/09/2019 09:00 Assessment Type: Ongoing Assessment Maternal Assessment Level of Consciousness: Keenly Alert, Responsive DTR's/Clonus: DTRs 2+; No Clonus Headache: Denies Blurred Vision: No Labor Evaluation Frequency: x1 Monitor Mode: External Duration (sec)2399: 40 Quality: Mild Resting Tone [place]: Relaxed Heart Rate FHR Baseline Rate: 115 Monitor Mode: External US FHR Baseline Changes: No Baseline Change Variability: Moderate 6-25 bpm Accelerations: 15X15 Decelerations: None Category: Category I Datetime: 02/09/2019 08:25 Assessment Type: Ongoing Assessment Maternal Assessment Level of Consciousness: Keenly Alert, Responsive DTR's/Clonus: DTRs 2+; No Clonus Headache: Denies Blurred Vision: No Respiratory Effort: Unlabored; Regular Rhythm; Equal Expansion Breath Sounds, Left: Clear and Equal Breath Sounds, Right: Clear and Equal Nausea/Vomiting: Denies RUQ Epigastric Pain: Denies Lower Extremities Edema: None Degree: None Upper Extremities Edema: None Degree: None Facial Edema: None Fall Risk Assessment History of Falling: (0) No Secondary Diagnosis: (0) No Ambulatory Aid: (0) Bedrest/Nurse Assist IV Therapy: (20) Yes Gait: (0) Normal/Bedrest/Immobile Mental Status: (0) Oriented to Own Ability Fall Score: 20 Fall Risk Score Definition: No Risk: No action required Datetime: 02/09/2019 08:19 Stage of : Antepartum Temperature Route: Oral Pain Assessment Pain Scale: 5 Pain Presence: Constant Pain Type: Ache Pain Location: Back Pain Relief Measures: Comfort Measures Datetime: 02/09/2019 08:00 Labor Evaluation Frequency: x1 Monitor Mode: External Duration (sec)2399: 60 Quality: Mild Resting Tone [place]: Relaxed Heart Rate FHR Baseline Rate: 120 Monitor Mode: External US FHR Baseline Changes: No Baseline Change Variability: Moderate 6-25 bpm Accelerations: 15X15 Decelerations: Variable Datetime: 02/09/2019 07:00 Stage of : Antepartum Maternal Assessment Level of Consciousness: Keenly Alert, Responsive DTR's/Clonus: DTRs 2+; No Clonus Headache: Denies Breath Sounds, Left: Clear and Equal Breath Sounds, Right: Clear and Equal Nausea/Vomiting: Denies RUQ Epigastric Pain: Denies Labor Evaluation Frequency: irregular x2/1hr Monitor Mode: External Duration (sec)2399: 60 Pattern: Normal: <= 5 Contractions in 10 Minutes Resting Tone [place]: Relaxed Heart Rate FHR Baseline Rate: 120 Monitor Mode: External US Variability: Moderate 6-25 bpm Accelerations: 15X15 Decelerations: None Category: Category I Datetime: 02/09/2019 06:00 Stage of : Antepartum Maternal Assessment Level of Consciousness: Keenly Alert, Responsive DTR's/Clonus: DTRs 2+; No Clonus Headache: Denies Breath Sounds, Left: Clear and Equal Breath Sounds, Right: Clear and Equal Nausea/Vomiting: Denies RUQ Epigastric Pain: Denies Labor Evaluation Frequency: irregular x2/1hr Monitor Mode: External Duration (sec)2399: 60 Pattern: Normal: <= 5 Contractions in 10 Minutes Resting Tone [place]: Relaxed Heart Rate FHR Baseline Rate: 125 Monitor Mode: External US Variability: Moderate 6-25 bpm Accelerations: 15X15 Decelerations: None Category: Category I Comments: occassional loss of contact Datetime: 02/09/2019 05:00 Stage of : Antepartum Maternal Assessment Level of Consciousness: Keenly Alert, Responsive DTR's/Clonus: DTRs 2+; No Clonus Headache: Denies Breath Sounds, Left: Clear and Equal Breath Sounds, Right: Clear and Equal Nausea/Vomiting: Denies RUQ Epigastric Pain: Denies Labor Evaluation Frequency: irregular x2/1hr Monitor Mode: External Duration (sec)2399: 60 Pattern: Normal: <= 5 Contractions in 10 Minutes Resting Tone [place]: Relaxed Heart Rate FHR Baseline Rate: 125 Monitor Mode: External US Variability: Moderate 6-25 bpm Accelerations: 15X15 Decelerations: None Category: Category I Comments: occassional loss of contact Datetime: 02/09/2019 04:59 Monitor Mode: External Monitor Mode: External US Datetime: 02/09/2019 04:00 Stage of : Antepartum Labor Evaluation Frequency: irregular x1/1hr Monitor Mode: External Duration (sec)2399: 60 Pattern: Normal: <= 5 Contractions in 10 Minutes Resting Tone [place]: Relaxed Heart Rate FHR Baseline Rate: 130 Monitor Mode: External US Variability: Moderate 6-25 bpm Accelerations: 15X15 Decelerations: None Category: Category I Datetime: 02/09/2019 03:48 Monitor Mode: External Monitor Mode: External US Datetime: 02/09/2019 03:00 Stage of : Antepartum Maternal Assessment Level of Consciousness: Keenly Alert, Responsive DTR's/Clonus: DTRs 2+; No Clonus Headache: Denies Breath Sounds, Left: Clear and Equal Breath Sounds, Right: Clear and Equal Nausea/Vomiting: Denies RUQ Epigastric Pain: Denies Temperature Route: Oral Labor Evaluation Frequency: irregular Monitor Mode: External Pattern: Normal: <= 5 Contractions in 10 Minutes Resting Tone [place]: Relaxed Heart Rate FHR Baseline Rate: 135 Monitor Mode: External US Variability: Moderate 6-25 bpm Accelerations: 15X15 Decelerations: None Category: Category I Datetime: 02/09/2019 02:00 Stage of : Antepartum Labor Evaluation Frequency: irregular Monitor Mode: External Pattern: Normal: <= 5 Contractions in 10 Minutes Resting Tone [place]: Relaxed Heart Rate FHR Baseline Rate: 135 Monitor Mode: External US Variability: Moderate 6-25 bpm Accelerations: 15X15 Decelerations: None Category: Category I Datetime: 02/09/2019 01:00 Stage of : Antepartum Maternal Assessment Level of Consciousness: Keenly Alert, Responsive DTR's/Clonus: DTRs 2+; No Clonus Headache: Denies Breath Sounds, Left: Clear and Equal Breath Sounds, Right: Clear and Equal Nausea/Vomiting: Denies RUQ Epigastric Pain: Denies Labor Evaluation Frequency: irregular Monitor Mode: External Pattern: Normal: <= 5 Contractions in 10 Minutes Resting Tone [place]: Relaxed Heart Rate FHR Baseline Rate: 135 Monitor Mode: External US Variability: Moderate 6-25 bpm Accelerations: 15X15 Decelerations: None Category: Category I Comments: occassional loss of contact Datetime: 02/08/2019 23:31 Stage of : Antepartum Maternal Assessment Level of Consciousness: Keenly Alert, Responsive DTR's/Clonus: DTRs 2+; No Clonus Headache: Denies Breath Sounds, Left: Clear and Equal Breath Sounds, Right: Clear and Equal Nausea/Vomiting: Denies RUQ Epigastric Pain: Denies Labor Evaluation Frequency: irregular Monitor Mode: External Pattern: Normal: <= 5 Contractions in 10 Minutes Resting Tone [place]: Relaxed Heart Rate FHR Baseline Rate: 130 Monitor Mode: External US Variability: Moderate 6-25 bpm Accelerations: 15X15 Decelerations: None Category: Category I Datetime: 02/08/2019 22:15 Time of Arrival: 02/08/2019 22:15 EGA: 30.3 Arrived By: Wheelchair Arrived From: Triage Datetime: 02/08/2019 17:49 EGA: 30.3
== END 2019-03-06 21:25 | disposition home or self-care (01) ==
LOC: OBT 19:34 → L-D 19:34 → OBT 21:25
PROVIDERS: ATTEND Obstetrics & Gynecology
DX: O62.9 Abnormality of forces of labor, unspecified (principal); Z3A.34 34 weeks gestation of pregnancy
CPT/HCPCS: 81001; Z7500; G0463

== ENCOUNTER 2019-03-24 22:47 | Outpatient (CLI) | payer MEDICAID ==
[~2019-03-24] VITALS: Ht 162.6 cm; Wt 89.4 kg
[2019-03-24 23:34] VITALS: BP 106/59; PULSE 83; RESP 16
== END 2019-03-25 00:50 | disposition home or self-care (01) ==
LOC: OBT 22:47 → L-D 22:48 → OBT 03-25 00:50
PROVIDERS: ATTEND Obstetrics & Gynecology
DX: O62.9 Abnormality of forces of labor, unspecified (principal); Z3A.36 36 weeks gestation of pregnancy
CPT/HCPCS: 81001; Z7500; G0463